=== PATIENT | male | born 1965 | race American Indian/Alaskan Native ===

== ENCOUNTER 2018-08-22 08:06 | Day surgery (SDC) | payer MEDICARE ==
[~2018-08-22 08:06] MED LIST: WATER FOR IRRIG STERILE IR ONE; WATER FOR IRRIG STERILE ONE
[2018-08-22] MEDS ORDERED: DIPRIVAN 10 MG/ML IV ONE ×4 (08:17→12:59)
--- NOTE | 2018-08-22 08:44 | Anesthesia Consultation ---
Anesthesia Consult and Med Hx Date of service: 08/22/18 - Airway Anesthetic Teeth Evaluation: Good ROM Head & Neck: Adequate Mental/Hyoid Distance: Adequate Mallampati Class: Class I Intubation Access Assessment: Probably Good - Pulmonary Exam CTA: Yes - Cardiac Exam Cardiac Exam: RRR - Pre-Operative Health Status ASA Pre-Surgery Classification: ASA3 Proposed Anesthetic Plan: General, MAC - Pulmonary Hx Smoking: No Hx Asthma: Yes (Albuterol MDI 3 puffs pre-procedure) SOB: Yes COPD: Yes Home Oxygen Therapy: No Hx Sleep Apnea: No - Cardiovascular System Hx Hypertension: No Hx Coronary Artery Disease: No Hx Heart Attack/AMI: No Hx Cardia Arrhythmia: No - Central Nervous System Hx Neuromuscular Disorder: Yes (Kevin-Taylor syndrome since 2006, residual neuropathy hands and feet) Hx Seizures: No Hx Psychiatric Problems: No - Gastrointestinal Hx Ulcer: No Hx Gastroesophageal Reflux Disease: No - Endocrine Hx Renal Disease: No Hx Liver Disease: No - Hematic Hx Sickle Cell Disease: No - Other Systems Hx Alcohol Use: No - Additional Comments Anesthesia Medical History Comments: No GAC, No FHAC
[2018-08-22] MEDS ORDERED: NACL 0.9% 1000 ML 1,000 ML IV SCH (09:00)
[2018-08-22 13:53] VITALS: BP 114/79
--- NOTE | 2018-08-22 13:54 | Operative Report ---
Operative Report Operative Report: Date of procedure: 08/22/2018 Procedure: Colonoscopy with multiple submucosal injections, multiple snare p olypectomies, multiple Hemoclip applications. (Multiple endoscopic mucosal resections). Attending physician: Alan Dupree MD Implementation Consultant: Alan Dupree MD Indication: Patient is a 53-year-old male who presents for colonoscopy for colorectal cancer screening. Patient has a strong family history of colorectal cancer. His father at 68 years from colon cancer and also his brother had colon cancer. A colonoscopy serves to evaluate patient so that treatment may be directed based on the findings. Consent: Informed consent was obtained after advising the patient and family regarding nature of this procedure, its indications, potential benefits as well as possible complications including but not limited to bleeding perforation and adverse reaction to medication, infection as well as other cardiopulmonary complications. An informed written and verbal consent was then obtained after due opportunity was provided for questions and answers. Monitoring: Patient was monitored continuously with pulse oximetry and electrocardiographic recordings as well as blood pressure recordings. Vital signs remained stable throughout this procedure with no untoward events. Preoperative assessment: Patient was assessed immediately prior to this procedure for capacity to tolerate monitored anesthesia care and moderate sedation as well as general anesthesia. Patient's ASA classification is 2, Mallampati class is 2, Hyomental distance is 3. Instrument: Group 47 video colonoscope Medications: Propofol given intravenously in divided doses. For details please refer to anesthesia records. Description of procedure: Patient was placed in the left lateral decubitus position after achieving sedation, a digital rectal examination was performed following which the colonoscope was introduced into the anal verge and advanced to the cecum which was identified by the ileocecal valve, the appendiceal orifice, as well as by the cecal strap and direct transillumination. The terminal ileum was intubated for a distance of 20 cm and withdrawn. The colonoscope was subsequently withdrawn from the cecum with careful inspection of all mucosal surfaces. Patient tolerated this procedure well and was subsequently taken to the recovery room. The following findings were noted. Findings: Patient had densely adherent stool in the cecum and ascending colon and transverse colon. This was vigorously irrigated with complete removal of all stool. There were diverticula in the ascending colon descending colon and sigmoid colon of mild severity. In the proximal ascending colon, patient had a semi-pedunculated 1.5-2 cm polyp. This was elevated with submucosal injection of saline and removed by snare electrocautery. The edges of the polypectomy site was ablated. The polyp was completely retrieved. There was, a sessile 8- 10 mm polyp in the mid ascending colon. This had a serrated appearance with a mucus cap. This was elevated with submucosal injection of saline and removed by snare electrocautery. The edges of the polyp were removed with hot biopsy polypectomy by avulsion technique. All polyp fragments were retrieved. The transverse colon normal. In the proximal descending colon, patient had a serrated polyp measuring approximately 1.5 cm with a mucus cap. This was elevated with submucosal injection of saline. The entire polyp fragment was removed completely and retrieved. 3 hemoclips were used to close the defect from the polypectomy site. The rest of the descending colon was normal except for diverticulosis. The sigmoid colon was normal as well except for diverti culosis. In the rectum, patient had a serrated 8-10 mm sessile polyp with a mucus cap. This again was elevated with submucosal injection and endoscopic mucosal resection was completed with snare polypectomy and Hemoclip application at the polypectomy site. On the retroflexed view of the anal verge, patient had internal hemorrhoids. Impression: Multiple ascending colon polyps status post submucosal injection and snare polypectomy Descending colon polyp status post submucosal injection and snare polypectomy with Hemoclip application Rectal polyp that is placed submucosal injection, snare polypectomy and Hemoclip closure of the polypectomy defect. Diverticulosis Internal hemorrhoids . Plan: Follow-up pathology report High-fiber diet. Repeat colonoscopy in 6 months to 1 year.
--- NOTE | 2018-08-22 13:55 | Discharge Summary ---
Short Stay Discharge Plan Activity: advance as tolerated Weight Bearing Status: Weight Bear as Tolerated Diet: regular Additional Instructions: Post Sedation D/C Instructions - Do NOT eat anything greasy or spicy for first meal, if your first meal is tolerated ok, you may resume your regular diet unless otherwise directed. -Go directly home from the hospital and rest quietly. You may resume normal activities tomorrow. -Do NOT drive, return to work, operate any machinery or make any important personal or business decisions today. -Do NOT drink any alcohol or take nerve or sleeping drugs. They add to the effects of the medicine still present in your body. -No NSAIDS or ASPIRIN products for next 3-5 days, R/T polyp removals Follow up with: PRIMARY CARE [Primary Care Provider] - 7 Days
== END 2018-08-22 08:07 | disposition home or self-care (01) ==
LOC: GIO 08:06
PROVIDERS: ATTEND Internal Medicine Gastroenterology
DX: D12.2 Benign neoplasm of ascending colon (principal); D12.4 Benign neoplasm of descending colon; K62.1 Rectal polyp; K57.30 Diverticulosis of large intestine without perforation or abscess without bleeding; K64.8 Other hemorrhoids; K52.9 Noninfective gastroenteritis and colitis, unspecified; R10.9 Unspecified abdominal pain; K51.20 Ulcerative (chronic) proctitis without complications; J44.9 Chronic obstructive pulmonary disease, unspecified; Z80.0 Family history of malignant neoplasm of digestive organs; Z79.899 Other long term (current) drug therapy; Z88.5 Allergy status to narcotic agent
CPT/HCPCS: 45381; 45384; 45385; 88305; J2704; J7030